=== PATIENT | male | born 1950 | race Caucasian/White ===

== ENCOUNTER → 2018-07-09 | Day surgery (SDC) | payer BC, MEDICARE ==
[2018-07-07 11:11] LABS: BASOPHILS % 0.4 % (0.0-1.0); EOSINOPHILS # (AUTO) 0.1 (0.0-0.4); EOSINOPHILS % 2.6 % (0.0-6.0); HEMOGLOBIN 12.8 g/dL (14.0-18.0); LYMPHOCYTES # (AUTO) 1.2 (1.0-3.2); LYMPHOCYTES % 26.1 % (18.0-39.1); MEAN CORPUSCULAR HGB CONC 34.6 g/dL (31-35); MEAN CORPUSCULAR VOLUME 92.5 fL (81-99); MONOCYTES # (AUTO) 0.4 (0.2-0.8); NEUTROPHILS # (AUTO) 2.9 (2.1-6.9); NEUTROPHILS % 61.5 % (38.7-80.0); PLATELET COUNT 168 x10e3/uL (140-360); RED CELL DISTRIBUTION WIDTH 12.8 % (11.7-14.4)
[~2018-07-09] MED LIST: CARVEDILOL12.5 MG PO; FENTANYL CITRATE/PF 100MCG/2 ML INJ ONE; JUICE PLUS PO; LIDOCAINE HCL 2% LOCAL INJ 5 ML SDV VIAL INJ ONE; LISINOPRIL10 MG PO; MIDAZOLAM HCL 2 MG/2 ML VIAL ONE; ONCE DAILY1 EACH PO; PROPOFOL IV EMULSION 10 MG/ML 20 ML VIAL ONE
--- OUTSIDE RECORDS SUMMARY | 2018-07-09 13:51 | XMS REPORT | Clinical Summary ---
Author Author NAYANA [employer] [facility] [place] Address Unknown Phone Unavailable Care Team Providers Care Pediatric Clinical Nurse Specialist Name Role Phone PCP Unavailable Allergies No Known Allergies Medications End Date Status Medication Sig Dispensed Refills Start Date Active carvedilol (COREG) 12.5 Take 12.5 mg 0 MG tablet by mouth 2 (two) times daily with breakfast and dinner. Active lisinopril Take 10 mg by 0 (PRINIVIL,ZESTRIL) 10 MG mouth daily. tablet Active OMEGA-3/DHA/EPA/FISH OIL Take 2 g by 0 (FISH OIL-OMEGA-3 FATTY mouth daily. ACIDS) 300-1,000 mg capsule Active flaxseed oil 1,000 mg Cap Take by 0 mouth. Active calcium citrate-vitamin D Take 1 tablet 0 (CITRACAL+D) 315-200 by mouth mg-unit per tablet daily. Active multivitamin with Take 1 tablet 0 minerals tablet by mouth daily. Active b complex vitamins Take 1 0 capsule capsule by mouth daily. Active Problems Not on file Encounters Care Team Description Date Type Specialty El Yang MD ADDY (obstructive sleep apnea) 07/28/2017 Hospital Encounter after 07/08/2017 Social History Date Tobacco Use Types Packs/Day Years Used Never Smoker Alcohol Use Drinks/Week oz/Week Comments No Sex Assigned at Date Recorded Not on file Industry Job Start Date Occupation Not on file Not on file Not on file Travel End Travel History Travel Start No recent travel history available. Last Filed Vital Signs Not on file Plan of Treatment Health Maintenance Due Date Last Done Comments INFLUENZA VACCINE 11/10/2017 Procedures Comments Procedure Name Priority Date/Time Associated Diagnosis POLYSOMNOGRAPHY REPORT - 08/08/2017 SCAN 10:50 AM CDT POLYSOMNOGRAPHY REPORT - 08/01/2017 SCAN 11:40 AM CDT after 07/08/2017 Results * POLYSOMNOGRAPHY REPORT - SCAN (08/08/2017 10:50 AM CDT) Narrative Performed At * POLYSOMNOGRAPHY REPORT - SCAN (08/01/2017 11:40 AM CDT) Narrative Performed At after 07/08/2017 Insurance Payer Benefit Subscriber ID Type Phone Address Plan / Group [employer]ET[employer] - [employer] CARE AETNA HMO xxxxxxxxxx HMO/POS POS QPOS BLUE CROSS/BLUE SHIELD BCBS PPO xxxxxxxxxxxx PPO [phone] [address] [place] [address] CHOICE Advance Directives For more information, please contact: [facility] [address] [place] [address] Date Inactivated Comments Code Status Date Activated 09/02/2012 12:25 PM All possible means of support including;cardiac massage, mechanical ventilation, and defibrillation will be used to support life. Code ONE 09/01/2012 10:37 AM
[2018-07-09 18:45] VITALS: BP 120/91
[2018-07-09 18:55] LABS: WBC,FECAL (FECAL LACTOFERRIN) NEGATIVE (NEGATIVE)
--- NOTE | 2018-07-10 02:37 | Operative Report ---
DATE OF PROCEDURE: 07/09/2018 SURGEON: Jamie Loza MD PROCEDURES: EGD with biopsies and colonoscopy with polypectomy. REFERRING PHYSICIAN: Dr. Cheng Whatley. INDICATIONS FOR EGD: Anemia. INDICATIONS FOR COLONOSCOPY: Anemia and intermittent diarrhea. MEDICATIONS: The patient was done under MAC, please see anesthesiologist's note. PROCEDURE IN DETAIL: With the patient in left lateral decubitus position, a flexible fiberoptic Olympus gastroscope was introduced into the esophagus under direct visualization without any difficulty. There was some patchy erythema noted in the distal esophagus. Minute tongues of velvety mucosa were noted to extended proximally from the GE junction. Biopsies were obtained to rule out Stephen's. The scope was then advanced with ease into the stomach. Mucosa overlying the antrum and the body revealed some patchy erythema and [id number] edema and biopsies were obtained and sent the stain for H. pylori. The pylorus was of normal contour and shape, it was intubated with ease and the scope was advanced all the way to the second portion of the duodenum. Biopsies were obtained from the proximal second portion and the duodenal bulb to rule out sprue. There was also a prominent fold noted in the proximal second portion. The scope was then withdrawn back into the stomach and retroflexed, mucosa overlying the fundus and the cardia appeared to be within normal limits. The scope was then straightened out, it was subsequently withdrawn. Patient tolerated procedure well. IMPRESSION: 1. Distal esophagitis, mild. 2. Rule out Stephen's esophagus. 3. Gastritis, biopsied. Biopsies sent to stain for H. pylori. 4. Rule out sprue. 5. Prominent fold, proximal second portion biopsy. PLAN: Follow up histology. Initiate Protonix 40 mg one p.o. q.a.m. a.c. The patient was then turned around and after adequate lubrication of the anal canal, a flexible fiberoptic Olympus colonoscope was inserted into the rectum with ease and advanced all the way to the cecum. The ileocecal valve was intubated and the scope was advanced into the terminal ileum. Biopsies were obtained. The scope was then withdrawn back into the colon. It was then withdrawn slowly. Mucosa overlying the ascending and the transverse grossly appeared to be within normal limits. Some mild inflammatory changes noted in the left colon and random biopsies were obtained. One polyp was hot biopsied from the descending colon. Two polyps were snared from the sigmoid. There were some diverticular disease noted in the sigmoid and one polyp was hot biopsied from the rectum. The scope was then retroflexed into the distal rectum, and small internal hemorrhoids were noted, none of which was actively bleeding. The scope was then straightened out, it was subsequently withdrawn after securing an adequate stool specimen, that was sent for the appropriate stool studies. The patient tolerated the procedure well. IMPRESSION: 1. Descending colon polyp, hot biopsied. 2. Diverticulosis. 3. Sigmoid colon polyps x2 snared. 4. Rectal polyp x1 hot biopsied. 5. Internal hemorrhoids, none actively bleeding. PLAN: Follow up histology. Initiate Bentyl 10 mg one p.o. t.i.d. and VSL #3 one p.o. daily. The patient might benefit from a followup colonoscopy in 3 to 5 years. Dictated by Jamie Loza MD Jamie Loza MD [facility] [place] /[id number] cc: Cheng Whatley DO
[2018-07-10 15:27] LABS: C DIFFICILE TOXIN A&B AMP PROB NEGATIVE (NEGATIVE)
== END | disposition home or self-care (01) ==
LOC: OR 13:49
PROVIDERS: ATTEND Internal Medicine Gastroenterology
DX: D64.9 Anemia, unspecified (principal); D12.5 Benign neoplasm of sigmoid colon; K62.1 Rectal polyp; K29.50 Unspecified chronic gastritis without bleeding; K29.80 Duodenitis without bleeding; B96.81 Helicobacter pylori [H. pylori] as the cause of diseases classified elsewhere; K21.0 Gastro-esophageal reflux disease with esophagitis; K31.89 Other diseases of stomach and duodenum; K57.30 Diverticulosis of large intestine without perforation or abscess without bleeding; K64.8 Other hemorrhoids; I10 Essential (primary) hypertension; Z01.810 Encounter for preprocedural cardiovascular examination; Z68.34 Body mass index [BMI] 34.0-34.9, adult; Z95.810 Presence of automatic (implantable) cardiac defibrillator
CPT/HCPCS: 36415; 43239; 45380; 45384; 45385; 83630; 83993; 85025; 87045; 87177; 87328; 87493; 93005; J2001; J2250; J2704; 45378

== ENCOUNTER 2024-08-04 16:17 | Inpatient (IN) | payer MEDICARE, OTHER ==
[~2024-08-04] VITALS: Ht 190.5 cm; Wt 117.0 kg
[~2024-08-04 16:17] MED LIST changes: -FENTANYL CITRATE/PF 100MCG/2 ML INJ ONE; -LIDOCAINE HCL 2% LOCAL INJ 5 ML SDV VIAL INJ ONE; -MIDAZOLAM HCL 2 MG/2 ML VIAL ONE; -PROPOFOL IV EMULSION 10 MG/ML 20 ML VIAL ONE
[2024-08-04 16:25] VITALS: TEMP 97.7
[2024-08-04] MEDS: SODIUM CHLORIDE 0.9% 1000ML 1,000 ML IV STA ×2 (16:46→18:23)
[2024-08-04 16:57] LABS: BASOPHILS % 0.2 % (0.0-1.0); EOSINOPHILS % 0.6 % (0.0-6.0); LYMPHOCYTES % 1.8 % (18.0-39.1); MONOCYTES % 2.4 % (4.4-11.3); NEUTROPHILS % 93.3 % (38.7-80.0); RED CELL DISTRIBUTION WIDTH 13.8 % (11.7-14.4)
[2024-08-04 17:02] LABS: INR 1.23
[2024-08-04 17:11] LABS: EST GLOMERULAR FILTRATION RATE 32.0 ML/MIN (>=60)
[2024-08-04] MEDS: SODIUM CHLORIDE 0.9% 500ML 500 ML IV ONE (17:23)
[2024-08-04] MEDS: Vancomycin IV 1 GM in SODIUM CHLORIDE 0.9% 250ML 250 ML IV ONE (17:26)
[2024-08-04] MEDS ORDERED: TEMAZEPAM 7.5 MG CAP PO PRN (19:15)
[2024-08-04] MEDS ORDERED: Morphine 4mg INJECTION 4 MG/ML INJ IV PRN (21:30)
[2024-08-04] MEDS ORDERED: ONDANSETRON HCL INJ 2MG/ML 2ML 2 MG/ML VIAL IV PRN (21:30)
[2024-08-04 21:57] LABS: BAND NEUTROPHILS % (MANUAL) 18 %; EOSINOPHILS % (MANUAL) 2 % (0-7); LYMPHOCYTES % (MANUAL) 1 % (19-48); MONOCYTES % (MANUAL) 1 % (3.4-9.0); NEUTROPHILS % (MANUAL) 78 % (40-74)
[2024-08-04 21:59] LABS: PLATELET ESTIMATE SLIGHTLY DECREASED; PLATELET MORPHOLOGY COMMENT NORMAL; RBC MORPHOLOGY COMMENT NORMAL
[2024-08-04 22:31] VITALS: PULSE 73; RESP 20; O2SAT 97
[2024-08-04 23:00] VITALS: PULSE 72; RESP 21
[2024-08-04 23:45] VITALS: BP 109/43; PULSE 69; RESP 23; O2SAT 94
[2024-08-05] VITALS (49 sets, daily range): BP systolic 108–157; BP diastolic 39–56; PULSE 66–85; RESP 16–31; TEMP 97.8–98.7; O2SAT 90–97
[2024-08-05] MEDS: SODIUM CHLORIDE 0.9% 1000ML 1,000 ML IV SCH (00:36)
[2024-08-05 06:32] LABS: BASOPHILS % 0.5 % (0.0-1.0); EOSINOPHILS % 0.9 % (0.0-6.0); LYMPHOCYTES % 2.0 % (18.0-39.1); MONOCYTES % 2.7 % (4.4-11.3); NEUTROPHILS % 93.4 % (38.7-80.0); RED CELL DISTRIBUTION WIDTH 13.9 % (11.7-14.4)
[2024-08-05 07:05] LABS: EST GLOMERULAR FILTRATION RATE 35.0 ML/MIN (>=60)
[2024-08-05 11:09] LABS: BAND NEUTROPHILS % (MANUAL) 1 %; LYMPHOCYTES % (MANUAL) 2 % (19-48); MONOCYTES % (MANUAL) 1 % (3.4-9.0); NEUTROPHILS % (MANUAL) 96 % (40-74); PLATELET ESTIMATE SLIGHTLY DECREASED; PLATELET MORPHOLOGY COMMENT NORMAL
[2024-08-05 11:10] LABS: RBC MORPHOLOGY COMMENT NORMAL
[2024-08-05] MEDS ORDERED: HYDROCHLOROTHIA25 MG PO (14:02)
[2024-08-05] MEDS ORDERED: AMLODIPINE BESYL5 MG PO (14:02)
[2024-08-05] MEDS ORDERED: NAPROXEN250 MG PO (14:02)
[2024-08-05] MEDS ORDERED: ACETAMINOPHEN 325 MG TAB PO PRN (18:15)
[2024-08-05] MEDS: HEPARIN SOD (PORCINE) 5,000 UNIT/ML VIAL SC SCH (22:37)
[2024-08-06] VITALS (11 sets, daily range): BP systolic 119–144; BP diastolic 45–63; PULSE 71–76; RESP 16–26; TEMP 97.3–98.3; O2SAT 93–99
[2024-08-06 06:33] LABS: BASOPHILS % 0.3 % (0.0-1.0); EOSINOPHILS % 3.6 % (0.0-6.0); LYMPHOCYTES % 7.1 % (18.0-39.1); MONOCYTES % 5.1 % (4.4-11.3); NEUTROPHILS % 83.5 % (38.7-80.0); RED CELL DISTRIBUTION WIDTH 13.9 % (11.7-14.4)
[2024-08-06 07:06] LABS: EST GLOMERULAR FILTRATION RATE 47.0 ML/MIN (>=60)
[2024-08-06 07:14] LABS: % IRON SATURATION 13.0 % (15-50)
[2024-08-06] MEDS: FAMOTIDINE 20 MG TAB PO SCH (10:09)
[2024-08-06] MEDS: POTASSIUM CHLORIDE 10MEQ EA PO ONE ×2 (10:09→10:12)
[2024-08-06 10:25] LABS: LEUKOCYTE ESTERASE ,URINE NEGATIVE (NEGATIVE)
[2024-08-06 10:26] LABS: EPITHELIAL CELLS,URINE FEW /LPF; PROTEIN,URINE DIPSTICK 1+ (NEGATIVE); URINE UROBILINOGEN 1 mg/dL (0.2 - 1)
[2024-08-06 10:48] LABS: EOSINOPHILS % (MANUAL) 3 % (0-7); LYMPHOCYTES % (MANUAL) 4 % (19-48); MONOCYTES % (MANUAL) 1 % (3.4-9.0); NEUTROPHILS % (MANUAL) 92 % (40-74); PLATELET ESTIMATE SLIGHTLY DECREASED; PLATELET MORPHOLOGY COMMENT NORMAL; RBC MORPHOLOGY COMMENT NORMAL
[2024-08-06] MEDS: CARVEDILOL 3.125 MG TAB PO SCH (17:20)
[2024-08-07] VITALS (10 sets, daily range): BP systolic 121–157; BP diastolic 50–85; PULSE 70–82; RESP 16–21; TEMP 97.3–98.7; O2SAT 97–100
[2024-08-07 06:23] LABS: BASOPHILS % 0.3 % (0.0-1.0); EOSINOPHILS % 4.7 % (0.0-6.0); LYMPHOCYTES % 17.3 % (18.0-39.1); MONOCYTES % 7.8 % (4.4-11.3); NEUTROPHILS % 68.5 % (38.7-80.0); RED CELL DISTRIBUTION WIDTH 13.7 % (11.7-14.4)
[2024-08-07 06:40] LABS: EST GLOMERULAR FILTRATION RATE 64.0 ML/MIN (>=60)
[2024-08-07] MEDS ORDERED: METOPROLOL SUCCINATE 25 MG TAB XL PO SCH (09:00)
[2024-08-07] MEDS: POTASSIUM CHLORIDE 10MEQ EA PO ONE (12:56)
[2024-08-08] VITALS (10 sets, daily range): BP systolic 139–176; BP diastolic 50–79; PULSE 76–86; RESP 18–20; TEMP 97.1–98.6; O2SAT 97–100
[2024-08-08 05:54] LABS: BASOPHILS % 0.3 % (0.0-1.0); EOSINOPHILS % 3.7 % (0.0-6.0); LYMPHOCYTES % 21.8 % (18.0-39.1); MONOCYTES % 8.7 % (4.4-11.3); NEUTROPHILS % 61.6 % (38.7-80.0); RED CELL DISTRIBUTION WIDTH 13.5 % (11.7-14.4)
[2024-08-08 06:22] LABS: EST GLOMERULAR FILTRATION RATE 75.0 ML/MIN (>=60)
[2024-08-08] MEDS: SACUBITRIL/VALSARTAN 24MG/26MG 1 EA TAB PO SCH (16:22)
[2024-08-09] VITALS (8 sets, daily range): BP systolic 125–154; BP diastolic 43–79; PULSE 75–84; RESP 17–20; TEMP 97.5–99; O2SAT 96–100
[2024-08-09 05:42] LABS: BASOPHILS % 0.3 % (0.0-1.0); EOSINOPHILS % 2.1 % (0.0-6.0); LYMPHOCYTES % 17.5 % (18.0-39.1); MONOCYTES % 7.6 % (4.4-11.3); NEUTROPHILS % 68.0 % (38.7-80.0); RED CELL DISTRIBUTION WIDTH 13.2 % (11.7-14.4)
[2024-08-09 06:14] LABS: EST GLOMERULAR FILTRATION RATE 81.0 ML/MIN (>=60)
[2024-08-10] MEDS: SODIUM CHLORIDE 0.9% 250ML 250 ML ONE (00:17)
[2024-08-10 03:38] VITALS: BP 142/59; PULSE 75; RESP 20; TEMP 98.4; O2SAT 97
[2024-08-10 08:37] VITALS: BP 132/51; PULSE 75; RESP 17; TEMP 97.9; O2SAT 98
[2024-08-10 09:22] VITALS: BP 132/51; PULSE 75; RESP 17; TEMP 97.9; O2SAT 98
[2024-08-10 12:00] VITALS: BP 130/53; PULSE 83; RESP 18; TEMP 97.5; O2SAT 100
[2024-08-10 16:00] VITALS: BP 130/51; PULSE 82; RESP 17; TEMP 97.6; O2SAT 99
[2024-08-10] MEDS ORDERED: COREG3.125 MG PO (16:16)
[2024-08-10] MEDS ORDERED: ENTRESTO 24 MG1 EACH PO (16:16)
[2024-08-10] MEDS ORDERED: CEPHALEXIN500 M1 PO (16:16)
== END 2024-08-10 18:02 | disposition home or self-care (01) | DRG 871 ==
LOC: ER 16:29 → ERHOLD 21:38 → ICU 23:26 → MED/SURG2 08-06 06:33 → MED/SURG3 08-06 19:24 → MED/SURG2 08-09 16:02
PROVIDERS: ADMIT Internal Medicine; ATTEND Internal Medicine
PROC: 06HY33Z Insertion of Infusion Device into Lower Vein, Percutaneous Approach (ICD-10-PCS; principal; 2024-08-04)
PROC: 3E0333Z Introduction of Anti-inflammatory into Peripheral Vein, Percutaneous Approach (ICD-10-PCS; 2024-08-04)
DX: A41.9 Sepsis, unspecified organism (principal); N17.0 Acute kidney failure with tubular necrosis; R65.21 Severe sepsis with septic shock; R57.1 Hypovolemic shock; I42.9 Cardiomyopathy, unspecified; I50.22 Chronic systolic (congestive) heart failure; L03.115 Cellulitis of right lower limb; I11.0 Hypertensive heart disease with heart failure; D69.6 Thrombocytopenia, unspecified; I25.10 Atherosclerotic heart disease of native coronary artery without angina pectoris; E87.6 Hypokalemia; I48.0 Paroxysmal atrial fibrillation; L97.521 Non-pressure chronic ulcer of other part of left foot limited to breakdown of skin; R19.7 Diarrhea, unspecified; E86.0 Dehydration; D64.9 Anemia, unspecified; R53.81 Other malaise; E87.70 Fluid overload, unspecified; E66.9 Obesity, unspecified; Z68.32 Body mass index [BMI] 32.0-32.9, adult; Z86.711 Personal history of pulmonary embolism; Z86.718 Personal history of other venous thrombosis and embolism; Z95.810 Presence of automatic (implantable) cardiac defibrillator
CPT/HCPCS: 36415; 36555; 71045; 74022; 76770; 80048; 80053; 81001; 82550; 82607; 82728; 82746; 83540; 83605; 83735; 83880; 84466; 84484; 85025; 85610; 85730; 87040; 87086; 93005; 93306; 93925; 93971; 94799; 99252; 99284; J1644; J2543; J7030; J7040; J7050

== ENCOUNTER 2024-09-08 11:30 | Outpatient (RCR) | payer MEDICARE, OTHER ==
[~2024-09-08 11:30] MED LIST changes: +AMLODIPINE BESYL5 MG PO; +CEPHALEXIN500 M1 PO; +COREG3.125 MG PO; +ENTRESTO 24 MG1 EACH PO; +HYDROCHLOROTHIA25 MG PO; +LIDOCAINE VISC 2% SOLN 15 ML UDC ONE; +LIDOCAINE/PRILOCAINE 2.5-2.5% KIT ONE; +NAPROXEN250 MG PO
== END 2024-09-09 ==
LOC: WCC 11:30
PROVIDERS: ATTEND Nurse Practitioner Family
DX: I87.311 Chronic venous hypertension (idiopathic) with ulcer of right lower extremity (principal); L97.812 Non-pressure chronic ulcer of other part of right lower leg with fat layer exposed
CPT/HCPCS: 87071; 87075; 87205

== ENCOUNTER 2024-10-06 11:00 | Outpatient (RCR) | payer MEDICARE, OTHER ==
[~2024-10-06 11:00] MED LIST changes: -LIDOCAINE VISC 2% SOLN 15 ML UDC ONE; -LIDOCAINE/PRILOCAINE 2.5-2.5% KIT ONE
== END 2024-10-10 ==
LOC: WCC 11:00
PROVIDERS: ATTEND Nurse Practitioner Family
DX: I87.311 Chronic venous hypertension (idiopathic) with ulcer of right lower extremity (principal); L97.818 Non-pressure chronic ulcer of other part of right lower leg with other specified severity; L97.812 Non-pressure chronic ulcer of other part of right lower leg with fat layer exposed; R60.0 Localized edema

== ENCOUNTER 2024-10-25 08:00 | Outpatient (RCR) | payer MEDICARE, OTHER | END 2024-11-09 | LOC: WCC 08:00 | PROVIDERS: ATTEND Plastic Surgery | DX: I87.311 Chronic venous hypertension (idiopathic) with ulcer of right lower extremity (principal); L97.818 Non-pressure chronic ulcer of other part of right lower leg with other specified severity; L97.812 Non-pressure chronic ulcer of other part of right lower leg with fat layer exposed; R60.0 Localized edema ==